=== PATIENT | female | born 1960 | race Caucasian/White ===

== ENCOUNTER 2019-01-09 20:18 | Emergency (ER) | payer OTHER ==
[~2019-01-09] VITALS: Ht 160 cm; Wt 78.0 kg
[~2019-01-09 20:18] MED LIST: IMURAN 50MG TAB50 M1 PO; NORCO 5-325 TA1 EACH PO; WELLBUTRIN XL300 MG PO
[2019-01-09 21:20] LABS: HEMATOCRIT 44.6 % (37.0-47.0); HEMOGLOBIN 15.4 gm/dL (12.0-15.0); MCH 38.7 pg (26.0-34.0); MCHC 34.5 g/dL (28.0-37.0); MCV 112.3 fL (80.0-100.0); PLATELET COUNT 146 thou/uL (150-400); RBC 3.97 mil/uL (4.20-5.00); RDW 14.1 % (10.5-14.5)
[2019-01-09 21:23] LABS: CREATININE 0.9 mg/dL (0.6-1.0); POTASSIUM 3.8 mmol/L (3.5-5.1)
[2019-01-09 21:29] LABS: ALBUMIN 4.4 g/dL (3.4-5.0); TOTAL BILIRUBIN 0.5 mg/dL (<0.1-1.0); TOTAL PROTEIN 8.5 g/dL (6.4-8.2)
[2019-01-09 21:50] LABS: ABSOLUTE NEUTROPHILS 4.4 thou/uL (1.4-8.2); ANISOCYTOSIS 1+; MACROCYTES 1+
[2019-01-10] MEDS ORDERED: ZOFRAN ODT4 MG PO (01:01)
[2019-01-10 01:26] VITALS: BP 133/55
== END 2019-01-10 01:27 | disposition home or self-care (01) ==
LOC: ER 20:18
PROVIDERS: Emergency Medicine
DX: R19.7 Diarrhea, unspecified (principal); R11.2 Nausea with vomiting, unspecified; Z90.49 Acquired absence of other specified parts of digestive tract; Z98.890 Other specified postprocedural states; Z88.6 Allergy status to analgesic agent